=== PATIENT | female | born 1960 | race Caucasian/White ===

== ENCOUNTER 2021-05-02 11:14 | Emergency (ER) | payer BC, SELFPAY ==
--- OUTSIDE RECORDS SUMMARY | 2021-05-02 11:34 | XMS REPORT | Continuity of Care Document ---
:1960 Author Organization [facility] t Address [address] [place] [address] Care Team Providers Name Role Phone Unavailable Unavailable Unavailable Payers Payer Name Policy Type Policy Number Effective Date Expiration Date S ource HIM BCBS BLUE [id number] 2013 ADVANTAGE HMO 00:00:00 Problems This patient has no known problems. Allergies, Adverse Reactions, Alerts Allergy Allergy Status Severity Reaction(s) Onset Inactive Treating Comm ents Source Name Type Date Date Clinician CODEINE DRUG Active ITCHING 2015-05 [facility] INGREDI 0-17 ity of 00:00: [address] Medications This patient has no known medications. Procedures This patient has no known procedures. Encounters Start End Encounter Admission Attending Care Care Encounter Source Date/Time Date/Time Type Type Clinicians Facility Department ID 2020-08-05 2020-08-[address] [facility] [id number] [facility] 12:40:00 12:40:00 ity of [facility] 2020-07-08 2020-07-[address] [facility] [id number] [facility] 14:15:00 14:15:00 [facility] Results This patient has no known results.
[2021-05-02] MEDS ORDERED: HYDRALAZINE HCL 20 MG/ML VIAL ONE (11:40)
[2021-05-02 11:57] LABS: Absolute Lymphocytes (CBC) 1.4 K/uL (0.7-4.9); Basophils % 0.6 % (0-1.3); Hematocrit 44.8 % (36.0-45.0); Lymphocytes % 20.7 % (15.3-44.8); MPV 9.1 fL (7.6-11.3); RBC Red Blood Cell Count 4.81 M/uL (3.86-4.86)
[2021-05-02 12:03] LABS: Protime INR 0.95
[2021-05-02 12:24] LABS: BUN Blood Urea Nitrogen 13 mg/dL (7-18); Bicarbonate 29 mmol/L (21-32); Glucose Level 157 mg/dL (74-106); NT PRO-BNP 186 pg/mL (<125); Sodium Level 141 mmol/L (136-145); Troponin (Emerg Dept Use Only) < 0.02 ng/mL (0.0-0.045)
[2021-05-02 12:26] LABS: Potassium 2.9 mmol/L (3.5-5.1)
--- NOTE | 2021-05-02 12:32 | RAD REPORT ---
EXAM DESCRIPTION: RAD - Chest Single View - 05/02/2021 12:23 pm CLINICAL HISTORY: DYSPNEA COMPARISON: CHEST SINGLE VIEW dated 11/28/2013; CHEST SINGLE VIEW dated 11/01/2013; ABDOMEN 1 VIEW KUB dated 10/29/2013; CHEST SINGLE VIEW dated 10/28/2013 FINDINGS: Lines: None. Lungs: No evidence of edema or pneumonia. Pleural: No significant pleural effusions or pneumothorax. Cardiac: The heart size is within normal limits. Bones: No acute fractures. Other: IMPRESSION: No acute cardiopulmonary disease.
[2021-05-02] MEDS ORDERED: KCL 20 MEQ/100 mL IVPB 100 ML IV ONE (12:39)
[2021-05-02] MEDS ORDERED: POTASSIUM 25 MEQ EFFERV TAB ONE (12:39)
[2021-05-02] MEDS ORDERED: NA CHLORIDE 0.9% 1,000 ML ONE (12:40)
[2021-05-02] MEDS ORDERED: ACETAMINOPHEN 500 MG TAB ONE (13:28)
--- NOTE | 2021-05-02 13:50 | EDPHYS ---
Physician Documentation [facility] Name: Jessica Curry Age: 61 yrs Sex: Female : 1960 Arrival Date: 05/02/2021 Time: 11:16 Bed 7 Private MD: ED Physician Robert Jackson HPI: 05/02 13:01 This 61 yrs old Female presents to ER via Ambulatory with complaints of Light Headed, jr8 Shortness Of Breath. 13:01 This is a 61-year-old female patient that presented to the emergency room with jr8 complaints of lightheadedness and shortness of breath that started couple weeks ago. Patient stated that her blood pressure has been markedly elevated despite being on her medications. Was seen by her primary care who referred her over for further evaluation.. Severity of symptoms: At their worst the symptoms were moderate in the emergency department the symptoms are unchanged. The patient has not experienced similar symptoms in the past. The patient has not recently seen a physician. Historical: - Allergies: 11:21 Codeine; ss 11:21 Percodan; ss - PMHx: 11:21 Hypertensive disorder; Hypercholesterolemia; Crohn's disease; ss - PSHx: 11:21 Appendectomy; hysterectomy; ss - Immunization history:: Client reports receiving the 2nd dose of the Covid vaccine. - Social history:: Smoking status: Patient reports the use of cigarette tobacco products, smokes one-half pack cigarettes per day. ROS: 13:01 Eyes: Negative for injury, pain, redness, and discharge, ENT: Negative for injury, jr8 pain, and discharge, Neck: Negative for injury, pain, and swelling, Cardiovascular: Negative for chest pain, palpitations, and edema, Abdomen/GI: Negative for abdominal pain, nausea, vomiting, diarrhea, and constipation, Back: Negative for injury and pain, MS/Extremity: Negative for injury and deformity, Skin: Negative for injury, rash, and discoloration. 13:01 Respiratory: Positive for shortness of breath. 13:01 Neuro: Positive for dizziness. Exam: 13:01 Eyes: Pupils equal round and reactive to light, extra-ocular motions intact. Lids and jr8 lashes normal. Conjunctiva and sclera are non-icteric and not injected. Cornea within normal limits. Periorbital areas with no swelling, redness, or edema. ENT: Nares patent. No nasal discharge, no septal abnormalities noted. Tympanic membranes are normal and external auditory canals are clear. Oropharynx with no redness, swelling, or masses, exudates, or evidence of obstruction, uvula midline. Mucous membranes moist. Neck: Trachea midline, no thyromegaly or masses palpated, and no cervical lymphadenopathy. Supple, full range of motion without nuchal rigidity, or vertebral point tenderness. No Meningismus. Cardiovascular: Regular rate and rhythm with a normal S1 and S2. No gallops, murmurs, or rubs. Normal PMI, no JVD. No pulse deficits. Respiratory: Lungs have equal breath sounds bilaterally, clear to auscultation and percussion. No rales, rhonchi or wheezes noted. No increased work of breathing, no retractions or nasal flaring. Abdomen/GI: Soft, non-tender, with normal bowel sounds. No distension or tympany. No guarding or rebound. No evidence of tenderness throughout. Back: No spinal tenderness. No costovertebral tenderness. Full range of motion. Skin: Warm, dry with normal turgor. Normal color with no rashes, no lesions, and no evidence of cellulitis. MS/ Extremity: Pulses equal, no cyanosis. Neurovascular intact. Full, normal range of motion. Neuro: Awake and alert, GCS 15, oriented to person, place, time, and situation. Cranial nerves II-XII grossly intact. Motor strength 5/5 in all extremities. Sensory grossly intact. Vital Signs: 11:17 BP 198 / 104; Pulse 85; Resp 16; Temp 98.0(TE); Pulse Ox 100% on R/A; Weight 68.04 kg; ss Height 5 ft. 5 in. (165.10 cm); Pain 0/10; 13:06 BP 162 / 82; Pulse 80; Resp 19; Pulse Ox 100% on R/A; ld1 14:35 BP 170 / 79; Pulse 78; Resp 18; Pulse Ox 22% on R/A; ld1 11:17 Body Mass Index 24.96 (68.04 kg, 165.10 cm) MDM: 11:23 Patient medically screened. [facility] 13:24 Data reviewed: vital signs, nurses notes, lab test result(s), EKG, radiologic studies, [facility] plain films. Data interpreted: Pulse oximetry: on room air is 100 %. Interpretation: normal. Counseling: I had a detailed discussion with the patient and/or guardian regarding: the historical points, exam findings, and any diagnostic results supporting the discharge/admit diagnosis, lab results, radiology results, the need for outpatient follow up, a family practitioner, to return to the emergency department if symptoms worsen or persist or if there are any questions or concerns that arise at home. 13:47 ED course: Patients BP markedly better. Potassium has been replaced. Recommended jr8 further evaluation for Hyperaldosteronism. If worse to come back but otherwise no other acute findings at this time. Needs to also f/u with cardiology. Patient good with this and knows to come back if worse . 05/02 11:38 Order name: Basic Metabolic Panel; Complete Time: 12:33 05/02 11:38 Order name: CBC with Diff; Complete Time: 12:33 05/02 11:38 Order name: NT PRO-BNP; Complete Time: 12:33 05/02 11:38 Order name: PT-INR; Complete Time: 12:33 05/02 11:38 Order name: Troponin (emerg Dept Use Only); Complete Time: 12:33 05/02 11:38 Order name: XRAY Chest (1 view); Complete Time: 12:37 05/02 11:38 Order name: EKG; Complete Time: 11:39 05/02 11:38 Order name: Cardiac monitoring; Complete Time: 11:38 05/02 11:38 Order name: EKG - Nurse/Tech; Complete Time: 11:38 05/02 11:38 Order name: IV Saline Lock; Complete Time: 11:38 05/02 11:38 Order name: Labs collected and sent; Complete Time: 11:38 05/02 11:38 Order name: O2 Per Protocol; Complete Time: 11:38 05/02 11:38 Order name: O2 Sat Monitoring; Complete Time: 11:38 Administered Medications: 11:50 Drug: hydrALAZINE 5 mg Route: IVP; Site: right antecubital; [facility] 15:39 Follow up: Response: No adverse reaction ld1 13:02 Drug: Potassium Chloride 20 mEq Route: IV; Rate: calculated rate; Site: right jh5 antecubital; 15:53 Follow up: Response: No adverse reaction; IV Status: Completed infusion; IV Intake: [id number] 13:02 Drug: Potassium Effervescent Tablet 50 mEq Route: PO; jh5 15:39 Follow up: Response: No adverse reaction ld1 13:35 Drug: Tylenol 1000 mg Route: PO; jg9 15:39 Follow up: Response: No adverse reaction ld1 14:42 Drug: Reglan (metoCLOPramide) 10 mg Route: IVP; Site: right antecubital; ld1 15:39 Follow up: Response: No adverse reaction ld1 14:42 Drug: Benadryl (diphenhydrAMINE) 25 mg Route: IVP; Site: right antecubital; ld1 15:39 Follow up: Response: No adverse reaction ld1 Disposition: 17:05 Co-signature as Attending Physician, Robert Jackson MD I agree with the assessment and kdr plan of care. Disposition Summary: 05/02/21 13:49 Discharge Ordered Location: Home [facility] Problem: new jr8 Symptoms: have improved jr8 Condition: Stable jr8 Diagnosis - Essential (primary) hypertension jr8 - Hypokalemia jr8 Followup: jr8 - With: Hever Mesa MD - When: 5 - 6 days - Reason: Recheck today's complaints, Continuance of care, Re-evaluation by your physician Discharge Instructions: - Discharge Summary Sheet jr8 - Potassium Content of Foods jr8 - Hypertension, Adult jr8 Forms: - Medication Reconciliation Form jr8 - Thank You Letter jr8 - Antibiotic Education jr8 - Prescription Opioid Use jr8 Signatures: Dispatcher [employer] [facility] Robert Jackson MD MD [facility] Jennifer Regan RN RN ss Vance Acharya PA PA jr8 Winnie Gonsalez RN RN ld1 Shayy Bates RN RN jh5 Kimberly Valenzuela jg9 Corrections: (The following items were deleted from the chart) 11:22 11:21 Allergies: No Known Allergies; [facility]
--- NOTE | 2021-05-02 13:50 | ER ---
Nurse's Notes [facility] Name: Jessica Curry Age: 61 yrs Sex: Female : 1960 Arrival Date: 05/02/2021 Time: 11:16 Bed 7 Private MD: Diagnosis: Essential (primary) hypertension;Hypokalemia Presentation: 05/02 11:17 Chief complaint: Patient states: Sent from [facility] for high blood pressure. Pt ss reports that her BP was 199/108 and they gave her a Clonidine tablet, but states it did not bring her BP down. Pt has a hx of high blood pressure and states that she has been taking her medications regularly. Coronavirus screen: Client denies travel out of the [place] in the last 14 days. Ebola Screen: Patient denies exposure to infectious person. Patient denies travel to an Ebola-affected area in the 21 days before illness onset. Initial Sepsis Screen: Does the patient meet any 2 criteria? No. Patient's initial sepsis screen is negative. Does the patient have a suspected source of infection? No. Patient's initial sepsis screen is negative. Risk Assessment: Do you want to hurt yourself or someone else? Patient reports no desire to harm self or others. Onset of symptoms is unknown. 11:17 Method Of Arrival: Ambulatory ss 11:17 Acuity: GUERA 2 ss Triage Assessment: 11:34 General: Appears in no apparent distress. slender, well groomed, well developed, jh5 Behavior is calm, cooperative, appropriate for age. Respiratory: Reports head fuzziness Onset: The symptoms/episode began/occurred gradually, the patient has moderate shortness of breath. Historical: - Allergies: 11:21 Codeine; ss 11:21 Percodan; ss - PMHx: 11:21 Hypertensive disorder; Hypercholesterolemia; Crohn's disease; ss - PSHx: 11:21 Appendectomy; hysterectomy; ss - Immunization history:: Client reports receiving the 2nd dose of the Covid vaccine. - Social history:: Smoking status: Patient reports the use of cigarette tobacco products, smokes one-half pack cigarettes per day. Screenin:34 Abuse screen: Denies threats or abuse. Denies injuries from another. Nutritional jh5 screening: No deficits noted. Tuberculosis screening: No symptoms or risk factors identified. Fall Risk None identified. Assessment: 11:33 Pain: Denies pain. Cardiovascular: Rhythm is irregular. Respiratory: Airway is patent jh5 Respiratory effort is even, unlabored, Breath sounds are clear. 13:06 Reassessment: Patient appears in no apparent distress at this time. ld1 Vital Signs: 11:17 BP 198 / 104; Pulse 85; Resp 16; Temp 98.0(TE); Pulse Ox 100% on R/A; Weight 68.04 kg; Height 5 ft. 5 in. (165.10 cm); Pain 0/10; 13:06 BP 162 / 82; Pulse 80; Resp 19; Pulse Ox 100% on R/A; ld1 14:35 BP 170 / 79; Pulse 78; Resp 18; Pulse Ox 22% on R/A; ld1 11:17 Body Mass Index 24.96 (68.04 kg, 165.10 cm) ED Course: 11:16 Patient arrived in ED. ds1 11:21 Triage completed. 11:21 Arm band placed on right wrist. 11:23 [facility] jr8 11:23 Robert Jackson MD is Attending Physician. jr8 11:33 Shayy Bates, EHRACLIO is Primary Nurse. 5 11:33 Inserted saline lock: 20 gauge in right antecubital area, using aseptic technique. 5 11:34 Patient has correct armband on for positive identification. Bed in low position. Call [facility] light in reach. Side rails up X 1. 11:44 Placed in gown. Adult w/ patient. Warm blanket given. monitoring manager on. Pulse ox on. 5 NIBP on. 11:44 EKG done, by ED staff, reviewed by Vance ART. 5 12:23 XRAY Chest (1 view) In Process Unspecified. EDMS 13:30 Patient requests rest room assistance. bedside commode at bedside. jg9 13:48 Hever Mesa MD is Referral Physician. jr8 15:53 No provider procedures requiring assistance completed. IV discontinued, intact, ld1 bleeding controlled, No redness/swelling at site. Administered Medications: 11:50 Drug: hydrALAZINE 5 mg Route: IVP; Site: right antecubital; 5 15:39 Follow up: Response: No adverse reaction ld1 13:02 Drug: Potassium Chloride 20 mEq Route: IV; Rate: calculated rate; Site: right [facility] antecubital; 15:53 Follow up: Response: No adverse reaction; IV Status: Completed infusion; IV Intake: [id number] 13:02 Drug: Potassium Effervescent Tablet 50 mEq Route: PO; jh5 15:39 Follow up: Response: No adverse reaction ld1 13:35 Drug: Tylenol 1000 mg Route: PO; jg9 15:39 Follow up: Response: No adverse reaction ld1 14:42 Drug: Reglan (metoCLOPramide) 10 mg Route: IVP; Site: right antecubital; ld1 15:39 Follow up: Response: No adverse reaction ld1 14:42 Drug: Benadryl (diphenhydrAMINE) 25 mg Route: IVP; Site: right antecubital; ld1 15:39 Follow up: Response: No adverse reaction ld1 Intake: 15:53 IV: 50ml; Total: 50ml. ld1 Outcome: 13:49 Discharge ordered by MD. wilson 15:53 Discharged to home ambulatory, with family. ld1 15:53 Condition: stable 15:53 Discharge instructions given to patient, family, Instructed on discharge instructions, follow up and referral plans. Demonstrated understanding of instructions, follow-up care. 15:54 Patient left the ED. ld1 Signatures: Dispatcher [employer] [facility] Dario Karina ds1 Jennifer Regan RN RN Vance Acharya PA PA jr8 Eli Estrada Lauren, RN RN ld1 Shayy Bates RN RN jh5 Kimberly Valenzuela jg9 Corrections: (The following items were deleted from the chart) 11:22 11:21 Allergies: No Known Allergies; ss ss
[2021-05-02] MEDS ORDERED: NA CHLORIDE 0.9% 250 ML ONE ×2 (14:03→15:12)
[2021-05-02] MEDS ORDERED: NA CHLORIDE 0.9% 500 ML ONE (14:26)
[2021-05-02] MEDS ORDERED: METOCLOPRAMIDE 10 MG/2mL INJ ONE (14:37)
[2021-05-02] MEDS ORDERED: DIPHENHYDRAMINE 50 MG/ML VIAL ONE (14:37)
[2021-05-02 16:23] VITALS: TEMP 98
[2021-05-02 16:25] VITALS: BP 170/79; O2SAT 22
== END 2021-05-02 15:54 | disposition home or self-care (01) ==
LOC: ER 11:14
DX: I10 Essential (primary) hypertension (principal); E87.6 Hypokalemia; F17.210 Nicotine dependence, cigarettes, uncomplicated; Z88.5 Allergy status to narcotic agent
CPT/HCPCS: 36415; 71045; 80048; 83880; 84484; 85025; 85610; 93005; 96365; 96366; 96375; 99284; J0360; J1200; J2765; J3480; J7030; J7040; J7050

== ENCOUNTER 2021-11-26 18:19 | Emergency (ER) | payer SELFPAY ==
[2021-11-26 19:32] LABS: Absolute Lymphocytes (CBC) 1.6 K/uL (0.7-4.9); Hematocrit 47.5 % (36.0-45.0); Lymphocytes % 21.8 % (15.3-44.8); MCV 89.8 fL (80-100); RBC Red Blood Cell Count 5.29 M/uL (3.86-4.86)
[2021-11-26 19:52] LABS: Potassium 3.4 mmol/L (3.5-5.1); Troponin High Sensitivity 4.9 pg/mL (<58.9)
--- NOTE | 2021-11-26 19:55 | RAD REPORT ---
EXAM DESCRIPTION: RAD - Chest Single View - 11/26/2021 7:14 pm CLINICAL HISTORY: hypertension COMPARISON: Chest Single View dated 05/02/2021; CHEST SINGLE VIEW dated 11/28/2013; CHEST SINGLE VIEW dated 11/01/2013; ABDOMEN 1 VIEW KUB dated 10/29/2013; CT ABD PELVIS W CONTRAST dated 11/28/2013 FINDINGS: Lines: None. Lungs: No evidence of edema or pneumonia. Prominence of the interstitial markings in the medial aspec t of the right lung base probably due to morphology of the patient's chest wall and accentuation of t he vascular structures. Pleural: No significant pleural effusions or pneumothorax. Cardiac: The heart size is within normal limits. Bones: No acute fractures. Other: IMPRESSION: No acute cardiopulmonary disease.
--- NOTE | 2021-11-26 19:56 | RAD REPORT ---
EXAM DESCRIPTION: CT - Head Brain Wo Cont - 11/26/2021 7:49 pm CLINICAL HISTORY: Headache, new or worsening COMPARISON: No comparisons TECHNIQUE: All CT scans are performed using dose optimization technique as appropriate and may inclu de automated exposure control or mA/KV adjustment according to patient size. FINDINGS: No intracranial hemorrhage, hydrocephalus or extra-axial fluid collection.No areas of brai n edema or evidence of midline shift. The paranasal sinuses and mastoids are clear. The calvarium is intact. IMPRESSION: No acute intracranial abnormality.
--- NOTE | 2021-11-26 20:03 | EDPHYS ---
Physician Documentation [facility] Name: Jessica Curry Age: 61 yrs Sex: Female : 1960 Arrival Date: 11/26/2021 Time: 18:47 Bed 15 Private MD: ED Physician Kevin Srinivasan HPI: 11/26 18:48 This 61 yrs old Female presents to ER via Unassigned with complaints of hypertension, ms3 headache. 18:48 61-year-old female with past medical history of Crohn's disease and hypertension ms3 presents via [facility] for elevated blood pressure. Patient states her blood pressure became elevated on . Patient was seen in clinic today for hypertension and her blood pressure was noted to be 240/130. EMS states her pressure improved to 200/130 in route. Patient states she currently has a 3/10 diffuse headache. Patient denies chest pain or shortness of breath. Patient denies alleviating or inciting factors. She currently denies treatment for her hypertension.. Onset: The symptoms/episode began/occurred 5 day(s) ago. Severity of symptoms: At their worst the symptoms were mild in the emergency department the symptoms are unchanged. Historical: - Allergies: 18:54 Codeine; ld1 18:54 Percodan; ld1 - PMHx: 18:54 Hypercholesterolemia; Crohn's Disease; Hypertensive disorder; ld1 - PSHx: 18:54 Appendectomy; hysterectomy; ld1 - Immunization history:: Adult Immunizations up to date, Client reports receiving the 2nd dose of the Covid vaccine. - Social history:: Smoking status: Patient denies any tobacco usage or history of. Patient/guardian denies using alcohol. ROS: 18:48 Constitutional: Negative for fever, and chills. Neck: Negative for injury, pain, and ms3 swelling, Cardiovascular: Negative for chest pain, and palpitations. Respiratory: Negative for shortness of breath, cough, wheezing, and pleuritic chest pain, Abdomen/GI: Negative for abdominal pain, nausea, vomiting, diarrhea, and constipation, Skin: Negative for injury, rash, and discoloration. 18:48 Psych: Negative for depression, anxiety, suicide ideation, homicidal ideation, and hallucinations. 18:48 Neuro: Positive for headache. Exam: 18:48 Constitutional: This is a well developed, well nourished patient who is awake, alert, ms3 and in no acute distress. Eyes: Pupils equal round and reactive to light, extra-ocular motions intact. Lids and lashes normal. Conjunctiva and sclera are non-icteric and not injected. Periorbital areas with no swelling, redness, or edema. Neck: Trachea midline, no cervical lymphadenopathy. Supple, full range of motion without nuchal rigidity, or vertebral point tenderness. No Meningismus. Chest/axilla: Normal chest wall appearance and motion. Nontender with no deformity. Cardiovascular: Regular rate and rhythm with a normal S1 and S2. No gallops, murmurs, or rubs. Normal PMI, no JVD. No pulse deficits. Respiratory: Lungs have equal breath sounds bilaterally, clear to auscultation and percussion. No rales, rhonchi or wheezes noted. No increased work of breathing, no retractions or nasal flaring. Abdomen/GI: Soft, non-tender, with normal bowel sounds. No distension or tympany. No guarding or rebound. No evidence of tenderness throughout. Skin: Warm, dry with normal turgor. Normal color with no rashes, no lesions, and no evidence of cellulitis. MS/ Extremity: Pulses equal, no cyanosis. Neurovascular intact. Full, normal range of motion. Psych: Awake, alert, with orientation to person, place and time. Behavior, mood, and affect are within normal limits. 19:07 ECG was reviewed by the Attending Physician. rn Vital Signs: 18:54 BP 177 / 81; Pulse 63; Resp 18; Temp 98.3(TE); Pulse Ox 99% on R/A; Weight 58.51 kg; ld1 Height 5 ft. 4 in. (162.56 cm); Pain 0/10; 19:34 BP 171 / 82; Pulse 60; Resp 18; Pulse Ox 97% on R/A; ld1 18:54 Body Mass Index 22.14 (58.51 kg, 162.56 cm) ld1 MDM: 18:47 Patient medically screened. ms3 18:48 Differential Diagnosis HTN vs ACS vs ICH. ms3 20:01 Data reviewed: vital signs, nurses notes, lab test result(s), EKG, radiologic studies, rn CT scan, plain films, and as a result, I will discharge patient. Counseling: I had a detailed discussion with the patient and/or guardian regarding: the historical points, exam findings, and any diagnostic results supporting the discharge/admit diagnosis, lab results, radiology results, the need for outpatient follow up, to return to the emergency department if symptoms worsen or persist or if there are any questions or concerns that arise at home. Response to treatment: the patient's symptoms have mildly improved after treatment, and as a result, I will discharge patient. Special discussion: I discussed with the patient/guardian in detail that at this point there is no indication for admission to the hospital. It is understood, however, that if the symptoms persist or worsen the patient needs to return immediately for re-evaluation. Based on the history and exam findings, there is no indication for further emergent testing or inpatient evaluation. I discussed with the patient/guardian the need to see the primary care provider for further evaluation of the symptoms. ED course: Signed out to me by Dr. Tovar, plan was to obtain labs and ct head, if neg and BP improved, dc home with pcp f/u for BP management. . 11/26 18:48 Order name: Basic Metabolic Panel; Complete Time: 20: ms3 11/26 18:48 Order name: CBC with Diff; Complete Time: 19:45 ms3 11/26 18:48 Order name: Troponin HS; Complete Time: 20: ms3 11/26 18:48 Order name: XRAY Chest (1 view); Complete Time: 20: ms3 11/26 18:48 Order name: EKG; Complete Time: 18:48 ms3 11/26 18:48 Order name: CT Head Brain wo Cont; Complete Time: 20: ms3 11/26 18:48 Order name: Cardiac monitoring; Complete Time: : ms3 11/26 18:48 Order name: EKG - Nurse/Tech; Complete Time: : ms3 11/26 18:48 Order name: IV Saline Lock; Complete Time: : ms3 11/26 18:48 Order name: Labs collected and sent; Complete Time: : ms3 11/26 18:48 Order name: O2 Per Protocol; Complete Time: : ms3 11/26 18:48 Order name: O2 Sat Monitoring; Complete Time: :08 ms3 EC: Rate is 58 beats/min. Rhythm is regular. QRS [place] is Normal. OR interval is normal. QRS rn interval is normal. QT interval is normal. No Q waves. T waves are Normal. No ST changes noted. Clinical impression: Sinus bradycardia. Interpreted by me. Reviewed by me. Administered Medications: No medications were administered Disposition Summary: 11/26/21 20:02 Discharge Ordered Location: Home rn Problem: new rn Symptoms: have improved rn Condition: Stable rn Diagnosis - Essential (primary) hypertension rn Followup: rn - With: Private Physician - When: As needed - Reason: Recheck today's complaints, Re-evaluation by your physician Discharge Instructions: - Discharge Summary Sheet rn - Hypertension, Adult rn - How to Take Your Blood Pressure, [id number] rn - Managing Your Hypertension rn Forms: - Medication Reconciliation Form rn - Thank You Letter rn - Antibiotic nutrition internship - Prescription Opioid Use rn Signatures: Dispatcher [employer] EDKevin Emanuel MD MD rn Sims, Marcus, DO DO ms3 Winnie Gonsalez RN RN ld1
--- NOTE | 2021-11-26 20:03 | ER ---
Nurse's Notes [facility] Name: Jessica Curry Age: 61 yrs Sex: Female : 1960 Arrival Date: 11/26/2021 Time: 18:47 Bed 15 Private MD: Diagnosis: Essential (primary) hypertension Presentation: 11/26 18:54 Chief complaint: Patient states: Went to clinic today - High blood pressure. ld1 Coronavirus screen: At this time, the client does not indicate any symptoms associated with coronavirus-19. Ebola Screen: No symptoms or risks identified at this time. 18:54 Method Of Arrival: EMS: [facility] ld1 18:54 Initial Sepsis Screen: Does the patient meet any 2 criteria? No. Patient's initial ld1 sepsis screen is negative. Does the patient have a suspected source of infection? No. Patient's initial sepsis screen is negative. Risk Assessment: Do you want to hurt yourself or someone else? Patient reports no desire to harm self or others. Onset of symptoms was November 26, 2021. 18:54 Acuity: GUERA 3 ld1 Triage Assessment: 18:54 General: Appears in no apparent distress. comfortable, Behavior is calm, cooperative, ld1 appropriate for age. Pain: Denies pain. EENT: No signs and/or symptoms were reported regarding the EENT system. Neuro: Level of Consciousness is awake, alert, obeys commands, Oriented to person, place, time, situation. Cardiovascular: Capillary refill < 3 seconds Patient's skin is warm and dry. Respiratory: Airway is patent Respiratory effort is even, unlabored. GI: Abdomen is flat, non-distended. : No signs and/or symptoms were reported regarding the genitourinary system. Derm: No signs and/or symptoms reported regarding the dermatologic system. Musculoskeletal: No signs and/or symptoms reported regarding the musculoskeletal system. Historical: - Allergies: 18:54 Codeine; ld1 18:54 Percodan; ld1 - PMHx: 18:54 Hypercholesterolemia; Crohn's Disease; Hypertensive disorder; ld1 - PSHx: 18:54 Appendectomy; hysterectomy; ld1 - Immunization history:: Adult Immunizations up to date, Client reports receiving the 2nd dose of the Covid vaccine. - Social history:: Smoking status: Patient denies any tobacco usage or history of. Patient/guardian denies using alcohol. Screenin:07 Abuse screen: Denies threats or abuse. Denies injuries from another. Nutritional ld1 screening: No deficits noted. Tuberculosis screening: No symptoms or risk factors identified. Fall Risk None identified. Assessment: 19:07 Reassessment: See triage assessment. ld1 Vital Signs: 18:54 BP 177 / 81; Pulse 63; Resp 18; Temp 98.3(TE); Pulse Ox 99% on R/A; Weight 58.51 kg; ld1 Height 5 ft. 4 in. (162.56 cm); Pain 0/10; 19:34 BP 171 / 82; Pulse 60; Resp 18; Pulse Ox 97% on R/A; ld1 18:54 Body Mass Index 22.14 (58.51 kg, 162.56 cm) ld1 ED Course: 18:47 Patient arrived in ED. ms3 18:51 Beny Tovar DO is Attending Physician. ms3 18:53 Winnie Gonsalez, HERACLIO is Primary Nurse. ld1 18:54 Arm band placed on right wrist. ld1 19:00 Attending Physician role handed off by Beny Tovar DO rn 19:00 Kevin Srinivasan MD is Attending Physician. rn 19:05 Triage completed. ld1 19:07 Patient has correct armband on for positive identification. Placed in gown. Bed in low ld1 position. Call light in reach. Side rails up X2. property assessment monitor on. Pulse ox on. NIBP on. Door closed. Noise minimized. Warm blanket given. 19:07 No provider procedures requiring assistance completed. Inserted saline lock: 20 gauge ld1 in right antecubital area, using aseptic technique. Blood collected. 19:15 XRAY Chest (1 view) In Process Unspecified. EDMS 19:50 CT Head Brain wo Cont In Process Unspecified. EDMS 20:29 IV discontinued, intact, bleeding controlled, No redness/swelling at site. ld1 Administered Medications: No medications were administered Medication: 19:07 VIS not applicable for this client. ld1 Outcome: 20:02 Discharge ordered by . rn 20:29 Discharged to home ambulatory. ld1 20:29 Condition: stable 20:29 Discharge instructions given to patient, Instructed on discharge instructions, follow up and referral plans. Demonstrated understanding of instructions, follow-up care. 20:29 Patient left the ED. ld1 Signatures: Dispatcher [employer] Kevin Sy MD MD rn Beny Tovar DO DO ms3 Winnie Gonsalez RN RN ld1
[2021-11-26] MEDS ORDERED: FUROSEMIDE 20 MG/ 2ML VIAL ONE (20:16)
[2021-11-26 20:46] VITALS: TEMP 98.3
[2021-11-26 20:47] VITALS: BP 171/82; O2SAT 97
--- NOTE | 2021-11-27 07:22 | EKG ---
Test Date: 2021-11-26 Test Time: 19:06:01 Winding Inspector: SD MEASUREMENT RESULTS: Intervals: Rate: 58 NE: 118 QRSD: 78 QT: 402 QTc: 394 [place]: P: -1 NE: 118 QRS: -17 T: -8 INTERPRETIVE STATEMENTS: Sinus bradycardia Inferior infarct, age undetermined Abnormal ECG Compared to ECG 05/02/2021 11:39:03 Myocardial infarct finding now present Sinus rhythm no longer present Ventricular premature complex(es) no longer present Electronically Signed On 11-27-21 07:20:30 CDT by Hever Mesa
--- OUTSIDE RECORDS SUMMARY | 2021-11-28 14:55 | XMS REPORT | Continuity of Care Document ---
:1960 Author Organization [facility] t Address [address] [place], [place] [address]kailey Mari [address] [place] [address] Care Team Providers Name Role Phone Doctor Unassigned, Name Attending Clinician Unavailable Payers Payer Name Policy Type Policy Number Effective Date Expiration Date S ource HIM BCBS BLUE [id number] 2013 ADVANTAGE HMO 00:00:00 Problems Condition Condition Condition Status Onset Resolution Last Treating Co mments Source Name Details Category Date Date Treatment Clinician Date Left arm Left arm Disease Active 2015-05 Unive rs numbness numbness 0-18 ity of 00:00: [address] Carotid Carotid Disease Active 2015-05 Univers artery artery 0-18 ity of disease disease 00:00: [address] Chest pain Chest pain Disease Active 2015-05 U nivers 0-17 ity of 00:00: [address] HTN HTN Disease Active 2015-05 Univers (hypertens (hypertens 0-17 it y of ion) ion) 00:00: [address] Branch Pure Pure Disease Active 2015-05 Univers hyperchole hyperchole 0-17 it y of sterolemia [place] [facility] Hypothyroi Hypothyroi Disease Active 2015-05 U nivers dism dism 0-17 ity of 00:00: [address] Crohn Crohn Disease Active 2015-05 Univers disease disease 0-17 ity of 00:00: [address] Allergies, Adverse Reactions, Alerts Allergy Allergy Status Severity Reaction(s) Onset Inactive Treating Comm ents Source Name Type Date Date Clinician CODEINE DRUG Active ITCHING 2015-05 Univers INGREDI 0-17 ity of 00:00: [place] 00 Medical Branch Codeine Propensi Active Itching 2015-05 Univer s ty to 0-17 ity of adverse 00:00: [place] reaction 00 Medical s Branch Social History Social Habit Start Date Stop Date Quantity Comments Source Alcohol intake 2016-03-11 2016-03-11 0 /d [facility] 00:00:00 00:00:00 Medical Branch Cigarettes smoked 2016-02-25 2016-02-25 [facility] current (pack per 00:00:00 00:00:00 Medical Branch day) - Reported Cigarette pack-years 2016-02-25 2016-02-25 [facility] 00:00:00 00:00:00 Medical Branch Sex Ass[birth year] At [birth year] [facility] 00:00:00 00:00:00 Medical Branch Smoking Status Start Date Stop Date Source Current every day smoker 2016-02-25 00:00:00 [facility] [place] Medications Ordered Filled Start Stop Current Ordering Indication Dosage Frequency Signature Comments Components Source Medication Medication Date Date Medication? Clinician (SIG) Name Name Potassium 2015-05 Yes Take by Univ ers Gluconate 05-11 mouth ity of 595 mg (99 11:03: daily. [place] mg) Tab 11 Medical Branch zolpidem 2015-05 Yes 5mg Take 5 mg Univ ers (AMBIEN) 5 05-11 by mouth ity o f mg tablet 11:02: at bedtime [place] 39 as needed Medical for Branch Insomnia. estradiol 2015-05 Yes 1mg Take 1 mg Uni vers (ESTRACE) 1 05-11 by mouth ity of mg tablet 10:57: daily. [place] 19 Medical Branch omeprazole 2015-05 Yes 40mg Take 40 mg U nivers (PRILOSEC) 05-11 by mouth ity o f 40 mg 10:57: daily. [place] capsule 19 Medical Branch mesalamine 2015-05 Yes 500mg Take 500 Un bria (PENTASA) 1- mg by ity of 500 mg CR 10:57: mouth 3 [place] capsule 19 (three) Medical times Branch daily. Levothyroxi 2015-05 Yes Take by Un bria ne 05-11 mouth. ity of (TIROSINT) 10:57: [place] 75 mcg 19 Medical capsule Branch amLODIPine 2015-05 Yes 5mg Take 1 Unive rs (NORVASC) 5 1-01 tablet by ity of mg tablet 00:00: mouth [place] 00 daily. Medical Branch atorvastati 2015-05 Yes 20mg Take 1 Univ ers n (LIPITOR) 0-18 tablet by ity of 20 mg 00:00: mouth at [place] tablet 00 bedtime. Medical Branch lisinopril 2015-05 Yes 20mg Take 1 Unive rs (PRINIVIL,Z 0-18 tablet by ity of ESTRIL) 20 00:00: mouth [place] mg tablet 00 daily. Medical Branch aspirin 81 2015-05 Yes 81mg Take 1 Unive rs mg EC 0-18 tablet by ity of tablet 00:00: mouth [place] 00 daily. Medical Branch nitroglycer 2015-[address] 1 Uni vers in 0-18 tablet ity of (NITROSTAT) 00:00: under the [place] 0.6 mg SL 00 tongue Medical tablet every 5 Branch (five) minutes as needed for Chest pain. Not to exceed 3 doses in 15 minutes. Immunizations Ordered Filled Immunization Date Status Comments [facility] Immunization Name Name SARS-COV-2 COVID-19 2020-08-05 Completed Unive rsity of MODERNA VACCINE 00:00:00 [facility] SARS-COV-2 COVID-19 2020-07-08 Completed Unive rsity of MODERNA VACCINE 00:00:00 [facility] Influenza Virus 2016-02-26 Completed Universit y of Vaccine Quad IM 3+ 00:00:[address] [facility] Emergency Room Procedures Procedure Date / Time Performed Performing Clinician Sour e EXTERNAL PROVIDER - 2021-08-12 05:01:00 Doctor Unassigned, No Un iversity of [facility] REFERRAL Name [facility] Encounters Start End Encounter Admission Attending Care Care Encounter Source Date/Time Date/Time Type Type Clinicians Facility Department ID 2021-08-12 2021-08-12 Orders Doctor MENDOZA [id number] Univers 00:00:00 00:00:00 Only Unassigned, ANA [id number] ity of [facility] [id number] Al as [id number] [place] [address] Branch 2020-08-05 2020-08-05 Outpatient [facility] [id number] Univers 12:40:00 12:40:00 ity of [facility] [place] [facility] 2020-07-08 2020-07-08 Outpatient [facility] [id number] Univers 14:15:00 14:15:00 [facility] Results Test Description Test Time Test Comments Results Result Comments Source TSH, THIRD GENERATION 2021-11-01 06:54:22 Test Item Value Reference Range Interpretation Comme nts TSH, THIRD GENERATION (test 1.190 UIU/ML 0.400-4.100 UNLESS OTHERWISE code = 2821) INDICATED, ALL TESTING PERFORMED [facility], [facility]. [address] [place] [address] LABORATORY DIRE CTOR: RAMON MCNALLY M.D. CLIA NUMBER [id number] CAP ACCREDITATION N O. [id number] COMPREHENSIVE METABOLIC [id number] 03:02:06 Test Item Value Reference Range Interpretation Comments GLUCOSE (test code = 57 MG/DL 70-99 L 2216) BUN (test code = 14 MG/DL 8-23 2207) CREATININE (test 0.93 MG/DL 0.60-1.30 code = 2214) eGFR (2020 CKD-EPI) 69 ML/MIN/1.73 >60 (test code = 97696) CALC BUN/CREAT (test 15 RATIO 6-28 code = 2235) SODIUM (test code = 146 MEQ/L 733-424 4779) POTASSIUM (test code 4.1 MEQ/L 3.5-5.4 = 2227) CHLORIDE (test code 105 MEQ/L 95-107 = 2215) CARBON DIOXIDE (test 29 MEQ/L 19-31 code = 2206) CALCIUM (test code = 9.3 MG/DL 8.5-10.5 2208) PROTEIN, TOTAL (test 6.3 G/DL 6.1-8.3 code = 2229) ALBUMIN (test code = 4.2 G/DL 3.5-5.2 2200) CALC GLOBULIN (test 2.1 G/DL 1.9-3.7 code = 2240) CALC A/G RATIO (test 2.0 RATIO 1.0-2.6 code = 2234) BILIRUBIN, TOTAL 0.3 MG/DL See_Comment [Automated message] (test code = 2207) The syste m which generated this result transmit crystal reference range : <=1.2. The refe rence range was not u sed to interpret th is result as normal/abnormal . ALKALINE PHOSPHATASE 99 U/L 40-140 (test code = 2204) AST (test code = 17 U/L 9-40 2217) ALT (test code = 19 U/L 5-40 2218) TSH, THIRD [id number] 03:44:02 Test Item Value Reference Range Interpretation Comments TSH, THIRD 1.420 UIU/ML 0.400-4.100 UNLESS GENERATION (test OTHERWISE I NDICATED, code = 2821) ALL TESTING PER FORMED [facility] PATH [facility] LAB[facility]ATORIES, [place]. [address] [facility] [address] LABORATORY DIRE CTOR: RAMON CHAVIRA M.D. CLIA NUMBER [id number] CAP ACCREDITATION N O. [id number] COMPREHENSIVE METABOLIC [id number] 02:59:52 Test Item Value Reference Range Interpretation Comments GLUCOSE (test code = 80 MG/DL 70-99 2216) BUN (test code = 15 MG/DL -23 2207) CREATININE (test 0.90 MG/DL 0.60-1.30 code = 2214) eGFR (2020 CKD-EPI) 72 ML/MIN/1.73 >60 (test code = 35970) CALC BUN/CREAT (test 17 RATIO 6-28 code = 2235) SODIUM (test code = 145 MEQ/L 179-887 6169) POTASSIUM (test code 4.2 MEQ/L 3.5-5.4 = 2227) CHLORIDE (test code 104 MEQ/L 95-107 = 2214) CARBON DIOXIDE (test 29 MEQ/L 19-31 code = 2206) CALCIUM (test code = 9.6 MG/DL 8.5-10.5 2208) PROTEIN, TOTAL (test 6.3 G/DL 6.1-8.3 code = 2229) ALBUMIN (test code = 4.5 G/DL 3.5-5.2 2200) CALC GLOBULIN (test 1.8 G/DL 1.9-3.7 L code = 2240) CALC A/G RATIO (test 2.5 RATIO 1.0-2.6 code = 2234) BILIRUBIN, TOTAL 0.5 MG/DL See_Comment [Automated message] (test code = 2207) The syste m which generated this result transmit crystal reference range : <=1.2. The refe rence range was not u sed to interpret th is result as normal/abnormal . ALKALINE PHOSPHATASE 104 U/L 40-140 (test code = 2203) AST (test code = 26 U/L 9-40 2217) ALT (test code = 34 U/L 5-40 2218) TSH, THIRD [id number] 06:34:03 Test Item Value Reference Range Interpretation Comments TSH, THIRD GENERATION (test code 1.560 UIU/ML 0.400-4.100 = 2821) COMPREHENSIVE METABOLIC [id number] 05:22:14 Test Item Value Reference Range Interpretation Comments GLUCOSE (test code = 83 MG/DL 70-99 2216) BUN (test code = 11 MG/DL 8-23 2207) CREATININE (test 0.77 MG/DL 0.60-1.30 code = 2213) eGFR (2020 CKD-EPI) 87 >60 (test code = 84296) ML/MIN/1.73 CALC BUN/CREAT (test 14 RATIO 6-28 code = 2235) SODIUM (test code = 144 MEQ/L 014-773 5838) POTASSIUM (test code 3.4 MEQ/L 3.5-5.4 L = 2227) CHLORIDE (test code 105 MEQ/L 95-107 = 221) CARBON DIOXIDE (test 27 MEQ/L 19-31 code = 2206) CALCIUM (test code = 9.4 MG/DL 8.5-10.5 2208) PROTEIN, TOTAL (test 6.4 G/DL 6.1-8.3 code = 222) ALBUMIN (test code = 4.6 G/DL 3.5-5.2 2200) CALC GLOBULIN (test 1.8 G/DL 1.9-3.7 L code = 2240) CALC A/G RATIO (test 2.6 RATIO 1.0-2.6 code = 2234) BILIRUBIN, TOTAL 0.5 MG/DL See_Comment [Automated message] (test code = 2207) The syste m which generated this result transmitted ref erence range: <=1.2. T he reference range was not used to int erpret this result as normal/abnormal . ALKALINE PHOSPHATASE 131 U/L 40-140 (test code = 2203) AST (test code = 29 U/L 2217) ALT (test code = 45 U/L 5-40 H UNLE SS 9) OTHERWISE INDIC ATED, ALL TESTING PER FORMED ATCLINICAL PATH [facility]LOGY LABORATORIES, [place]. [address] [place] [address] LABOR[address] DIRE CTOR: RAMON CHAVIRA M.D. CLIA NUMBER [id number] CAP ACCREDITATION N O. [id number] SCR MAMM BILATERAL SWAPNA CAD [id number] 14:33:00 Name: Jessica : 1960 Sex: F - SCR MAMM BILATERAL SWAPNA CAD DIGITALBILATERAL DIGITAL SCREENING MAMMOGRAM 3D/2D WITH CAD: 06/20/2021LINICAL: Asymptomatic. Digital breast tomosynthesis was performed in addition to routine CC and MLO views. Current mammographic images were evaluated by [employer] CAD (computer-aided detection) software. Comp arison is made to exams dated 03/19/2016 mammogram and 03/06/2015 mammogram - [facility]. The tissue of both breasts is heterogeneously dense. This may lower the sensitivity of mammography. No suspicious mass, architectural distortion, malignant type calcification, or lymph node abnormality detected. Breast architecture is stable compared to prior exams.IMPRESSION: NEGATIVEThere is no mammographic evidence of malignancy. Resume annual screening mammography in one year. Tim River/penrad:07/01/2021 14:33:00 Customs Consultant: Winnie Martinez MM, [facility] Mammographyletter sent: BIRADS 1-2 Normal Mammogram BI-RADS: 1 NegativeTS, THIRD [id number] 06:04:50 Test Item Value Reference Range Interpretation Comments TSH, THIRD 0.773 UIU/ML 0.400-4.100 UNLESS GENERATION (test OTHERWISE I NDICATED, code = 9072) ALL TESTING PER FORMED ATCLINICAL PATH OLOGY LABORATORIES, [place] [address] [place] [address] LABORATORY DIRE CTOR: RAMON CHAVIRA M.D. CLIA NUMBER [id number] CAP ACCREDITATION N O. [id number] COMPREHENSIVE METABOLIC [id number] 04:03:57 Test Item Value Reference Range Interpretation Comments GLUCOSE (test code = 71 MG/DL 70-99 2216) BUN (test code = 12 MG/DL 8-23 2207) CREATININE (test 0.74 MG/DL 0.60-1.30 EFFECTIVE code = 2214) 04/22/2021, [facility] HAS IMPLEMENTED THE NKF-ASN RECOMME NDED KD-EPI EGF R REFIT CALCULATI ON THAT DOES NOT INCLUDE A COEFFICIENT FOR RACE. FOR MORE INFORMATION, SE E ANNOUNCEMENT [email or web address] .[employer]/EGFR_CALC eGFR (2020 CKD-EPI) 91 ML/MIN/1.73 >60 (test code = 41219) CALC BUN/CREAT (test 16 RATIO 6-28 code = 2235) SODIUM (test code = 148 MEQ/L 133-146 H 2230) POTASSIUM (test code 3.9 MEQ/L 3.5-5.4 = 2228) CHLORIDE (test code 107 MEQ/L 95-107 = 2215) CARBON DIOXIDE (test 29 MEQ/L 19-31 code = 2206) CALCIUM (test code = 9.1 MG/DL 8.5-10.5 2208) PROTEIN, TOTAL (test 6.2 G/DL 6.1-8.3 code = 2229) ALBUMIN (test code = 4.4 G/DL 3.5-5.2 2200) CALC GLOBULIN (test 1.8 G/DL 1.9-3.7 L code = 2240) CALC A/G RATIO (test 2.4 RATIO 1.0-2.6 code = 2234) BILIRUBIN, TOTAL 0.2 MG/DL See_Comment [Automated message] (test code = 2207) The syste m which generated this result transmit crystal reference range : <=1.2. The refe rence range was not u sed to interpret th is result as normal/abnormal . ALKALINE PHOSPHATASE 91 U/L 40-140 (test code = 2203) AST (test code = 14 U/L 9-40 2217) ALT (test code = 14 U/L -2218)
== END 2021-11-26 20:29 | disposition home or self-care (01) ==
LOC: ER 18:19
DX: I10 Essential (primary) hypertension (principal); E78.00 Pure hypercholesterolemia, unspecified; Z88.5 Allergy status to narcotic agent
CPT/HCPCS: 36415; 70450; 71045; 80048; 84484; 85025; 93005; 99284; J1940